=== PATIENT | female | born 1945 | race Caucasian/White ===

== ENCOUNTER → 2022-02-23 13:28 | Outpatient (CLI) | payer MEDICARE, OTHER, SELFPAY ==
[2022-02-23 15:51] LABS: Progesterone, Total 6.87 ng/mL
[2022-02-23 16:07] LABS: Estradiol, Total 71.6 pg/mL
== END ==
PROVIDERS: PCP Family Medicine; Referring Provider Nurse Practitioner Family; Visit Provider Nurse Practitioner Family
DX: N95.1 Menopausal and female climacteric states (principal); Z79.890 Hormone replacement therapy
CPT/HCPCS: 36415; 82670; 84144; 84403

== ENCOUNTER → 2022-10-25 14:45 | Outpatient (CLI) | payer MEDICARE, OTHER, SELFPAY ==
--- NOTE | 2022-10-25 14:48 | DI.US.S_ITS ---
PROCEDURE: US PELVIC COMPLETE INDICATIONS: VAGINAL BLEEDING TECHNIQUE: Real-time scanning was performed of the pelvic organs, with image documentation. Additional endovaginal scanning was necessary due to incomplete visualization of the adnexal and endometrial structures by transabdominal scanning. COMPARISON: None. FINDINGS: Uterus: Uterus is anteverted and normal in size at 7.8 x 3.7 x 3.7 cm. The myometrium is homogeneous. The endometrium measures 1.5 mm combined thickness. The endometrium demonstrates an echogenic, cystic appearance. Ovaries: The right ovary measures 1.8 x 1.1 x 1.2 cm, with a calculated ovarian volume of 1.1 cc. The left ovary measures 2.1 x 1.0 x 1.1 cm, with a calculated ovarian volume of 1.2 cc. The ovaries have a normal sonographic appearance. Less than 12 follicles can be seen in each ovary. No adnexal masses are seen. Other: No pathologic free abdominal or pelvic fluid. IMPRESSION: Markedly thickened, abnormal appearance of the endometrium suspicious for neoplasm. Endometrial biopsy recommended. We strive to produce accurate, complete, and clear reports of imaging services. To assist us in improving patient care, this report was composed using standard report templates and voice recognition software. Therefore, it may contain abnormal punctuation, insertions and/or omissions. Occasional wrong-word or sound-alike substitutions may occur. Though we review the report and make efforts to correct it, we do recommend that the report be read carefully in proper context to recognize any text inaccuracies. Dictated by: Maryjane Lieberman M.D. on 10/26/2022 at 9:49 Approved by: Maryjane Lieberman M.D. on 10/26/2022 at 9:57
== END ==
PROVIDERS: PCP Family Medicine; Referring Provider Family Medicine; Visit Provider Family Medicine
DX: N93.9 Abnormal uterine and vaginal bleeding, unspecified (principal); R93.89 Abnormal findings on diagnostic imaging of other specified body structures
CPT/HCPCS: 76830; 76856; 93976

== ENCOUNTER 2022-12-08 09:20 | Day surgery (SDC) | payer MEDICARE, OTHER, SELFPAY ==
[2022-12-04 14:24] VITALS: BMI 25.7
--- NOTE | 2022-12-08 | PATH_ITS ---
[facility] Accession Number: [id number] No. of containers..01 Tissue . 01 Material submitted: . endometrium - ENDOMETRIAL BIOPSY AND CURETTINGS . 01 Diagnosis: Endometrium, Curettage: Mixed endocervical and endometrial polyp fragments. Negative for significant atypia and neoplasia. [facility] 12/14/2022 1639 Local . 01 Electronically signed: . Sandra Akhtar MD, Pathologist NPI- [id number] . 01 Gross description: . ENDOMETRIAL BIOPSY AND CURETTINGS: Received in formalin are multiple fragments of mucoid and hemorrhagic material measuring 1.2 x 1.2 x 0.4 cm in aggregate. Submitted in toto in 1 cassette. /[facility] 12/12/2022 1939 Local . 01 Pathologist provided ICD-10: N84.0 . 01 CPT . 699108 Performed at: 01 [facility] [address] [place] [address] [address], [place], [place] [id number] MD Goran Cruz MD Phone: [phone]
[2022-12-08] MEDS: LACTATED RINGERS 1,000 ML 100 ML IV (09:44)
[2022-12-08 09:46] VITALS: BP 146/79; PULSE 82; RESP 16; TEMP 36.3; O2SAT 96; BMI 25.7
--- NOTE | 2022-12-08 10:29 | PM.PREOP ---
Pre-operative Note COVID-19 Criteria for continued procedure: Possibility delay results in more complex future surgery or treatment Interval Note History & Physical reviewed/Exam performed by Physician: Yes Changes to H&P: No
--- NOTE | 2022-12-08 11:00 | SUR.OPER ---
Lithotomy on padded OR bed, head on pillow, arms secured on padded arm boards at <90 degrees abduction. Legs secured in padded yellow fins stirrups.
--- NOTE | 2022-12-08 11:04 | SUR.OPER ---
Patients glasses brought with patient to OR, removed and placed in patient labelled black glass pouch and brought with patient to PACU.
--- NOTE | 2022-12-08 11:21 | PM.OP.1 ---
Operative Date/Time/Diagnoses Date of procedure: 12/08/22 Time of procedure: 11:21 Pre-op diagnosis: Postmenopausal bleeding with thickened endometrium on ultrasound Post-op diagnosis: same (Endometrial polyps) Procedure & Clinicians Procedure: Hysteroscopy D&C with resection of polyps Same procedure as scheduled: Yes Indications: Postmenopausal bleeding with thickened endometrium on ultrasound Surgeon: Ngozi Brandt Click Yes if Unassisted: Yes Anesthesia Type: General Operative Notes Findings: Normal exam under anesthesia. Endometrial polyp, areas of endometrium with cystic changes. Closure Type: not applicable Specimen(s): other (Endometrial curettage and biopsies of endometrium) Estimated Blood Loss (mL): 5 Blood products transfused: none Procedure in detail: The patient was brought to the operating room where she underwent general anesthesia. She was placed in low stirrups She was prepped and draped in usual sterile fashion with pulsatile stockings in place and functional, warming in place. No antibiotics were indicated. Her bladder was drained with in and out catheter. A single-tooth tenaculum was placed on the anterior lip of the cervix and the uterus dilated to #8 Hegar dilator. The hysteroscope was placed into the uterus with a sorbitol solution running and under constant suction. The resecting loop set at 80 W of cutting was used to resect the polyp and thickened endometrium down to the level of the myometrium. A endometrial curettage was performed. The polyps/endometrial biopsy and the endometrial curettage were sent to pathology. The patient went to recovery room in good condition counts of instruments and sponges were correct. Estimated blood loss less than 5 mL. The sorbitol solution I=O approximately 1000 mL. Complications: none Post-operative Condition: stable Disposition: same day surgery Plan for aftercare: Home when awake and stable. Further follow-up and treatment based on biopsy results.
[2022-12-08 11:26] VITALS: BP 120/66; PULSE 81; RESP 15; TEMP 36.9; O2SAT 97
[2022-12-08 11:31] VITALS: BP 124/66; PULSE 84; RESP 14; O2SAT 98
[2022-12-08 11:36] VITALS: BP 152/76; PULSE 79; RESP 13; O2SAT 99
[2022-12-08 11:46] VITALS: BP 150/71; PULSE 80; RESP 12; TEMP 36.6; O2SAT 98
== END 2022-12-08 12:01 | disposition home or self-care (01) ==
PROVIDERS: PCP Family Medicine; Referring Provider Specialist; Visit Provider Specialist
PROC: 0UDB8ZZ Extraction of Endometrium, Via Natural or Artificial Opening Endoscopic (ICD-10-PCS; CPT 58558; principal; 2022-12-08 10:45)
DX: N95.0 Postmenopausal bleeding (principal); N84.0 Polyp of corpus uteri
CPT/HCPCS: 58558; J1885; J2405; J2704; J3010

== ENCOUNTER → 2023-02-27 09:59 | Outpatient (CLI) | payer MEDICARE, OTHER, SELFPAY ==
[2023-02-27 12:15] LABS: Add Manual Diff / Slide Review NO; Basophils Absolute Auto 100 /uL (0-100); Basophils Percent Auto 1.1 % (0-2); Eosinophils Absolute Auto 200 /uL (0-450); Eosinophils Percent Auto 3.2 % (2-4); Hematocrit 40.2 % (36-46); Hemoglobin 13.7 g/dL (12.0-16.0); Lymphocytes Absolute Auto 2500 /uL (1100-4500); Lymphocytes Percent Auto 44.2 % (25-40); Mean Corpuscular Hemoglobin 29.1 PG (26-34); Mean Corpuscular Volume 85.5 fL (80-100); Monocytes Absolute Auto 300 /uL (0-900); Monocytes Percent Auto 5.3 % (3-14); Neutrophils Absolute Auto 2600 /uL (1500-7000); Neutrophils Percent Auto 46.2 % (50-75); Platelet Count 223 X10^3/uL (150-400); Red Blood Cell Count 4.71 X10^6/uL (4.0-5.2); Red Cell Distribution Width 13.9 % (11.6-14.8); White Blood Cell Count 5.7 X10^3/uL (4.5-11.0)
[2023-02-27 12:41] LABS: Progesterone, Total 4.52 ng/mL
[2023-02-27 12:56] LABS: Testosterone 33.8 ng/dL (5.71-77.0)
[2023-02-27 12:57] LABS: Estradiol, Total 53.9 pg/mL
[2023-03-14 10:50] LABS: Dehydroepiandrosterone (DHEA) 73
== END ==
PROVIDERS: PCP Family Medicine; Referring Provider Family Medicine; Visit Provider Family Medicine
DX: N95.1 Menopausal and female climacteric states (principal); R53.83 Other fatigue; Z79.890 Hormone replacement therapy
CPT/HCPCS: 36415; 82627; 82670; 84144; 84403; 85025

== ENCOUNTER → 2023-12-24 17:42 | Outpatient (CLI) | payer MEDICARE, OTHER, SELFPAY ==
--- NOTE | 2023-12-24 17:43 | DI.MG.S_ITS ---
BILATERAL DIGITAL SCREENING MAMMOGRAM 3D/2D WITH CAD: 12/24/2023 CLINICAL: Routine screening. Family history of breast cancer. Comparison is made to exams dated: 03/08/2021 mammogram, 06/28/2018 mammogram, and 02/12/2017 mammogram - out side. There are scattered areas of fibroglandular density (category b / 25%-50% glandular tissue). Current study was also evaluated with a Computer Aided Detection (CAD) system. No significant masses, calcifications, or other findings are seen in either breast. There has been no significant interval change. IMPRESSION: NEGATIVE There is no mammographic evidence of malignancy. A 1 year screening mammogram is recommended. Based on the Tyrer Cuzick model (a risk assessment model) the patient's lifetime risk is 4.6% and her 10 year risk is 0.0%. According to the ACR, ACS, and NCCN guidelines, an annual breast MRI exam along with mammogram is recommended if the patient's lifetime risk is 20% or greater. This exam was interpreted at Station ID: [id number]. NOTE: For mammograms, a report in lay terms will be sent to the patient. Approximately 15% of breast malignancies will not be visualized mammographically. In the management of a palpable breast mass, a negative mammogram must not discourage biopsy of a clinically suspicious lesion. Electronically Signed By: Yoel [email or web address]/[email or web address]:12/25/2023 11:15:00 letter sent: Normal Exam ACR BI-RADS Category 1: Negative
== END ==
LOC: MAMMO 17:43
PROVIDERS: PCP Family Medicine; Referring Provider Family Medicine; Visit Provider Family Medicine
DX: Z12.31 Encounter for screening mammogram for malignant neoplasm of breast (principal); Z80.3 Family history of malignant neoplasm of breast
CPT/HCPCS: 77063; 77067

== ENCOUNTER → 2024-10-17 16:32 | Outpatient (CLI) | payer MEDICARE, OTHER, SELFPAY ==
[2024-10-17 17:48] LABS: Free T3, Triiodothyronine Free 3.61 pg/mL (2.77-5.27); Free T4, Direct Thyroxine 3.41 ng/dL (0.78-2.19)
[2024-10-17 18:02] LABS: Thyroid Stimulating Hormone 1.56 uIU/mL (0.47-4.68)
== END ==
LOC: LAB 16:33
PROVIDERS: PCP Family Medicine; Referring Provider Family Medicine; Visit Provider Family Medicine
DX: E05.90 Thyrotoxicosis, unspecified without thyrotoxic crisis or storm (principal)
CPT/HCPCS: 36415; 83520; 84439; 84443; 84445; 84481

== ENCOUNTER → 2024-10-23 06:52 | Outpatient (CLI) | payer MEDICARE, OTHER, SELFPAY ==
--- NOTE | 2024-10-23 06:53 | DI.US.S_ITS ---
PROCEDURE: US THYROID INDICATIONS: HYPERTHYROIDISM TECHNIQUE: Real-time scanning was performed of the thyroid gland, with image documentation. COMPARISON: None. FINDINGS: Thyroid: Right lobe measures 4.9 x 1.9 x 1.7 cm. Left lobe measures 5.0 x 1.9 x 1.2 cm. Isthmus is 0.4 cm thick. Echotexture is heterogeneous. Nodule number: 1 Location: Left thyroid lobe middle 1/3 Size: 1.1 x 0.8 x 0.5 cm. Composition: Predominantly cystic, mixed Echogenicity: Hypoechoic Shape: wider than tall. Margins: Smooth Echogenic foci: Punctate Total points: 6 ACR TI-RADS category: 4 Nodule number: 2 Location: Right thyroid lobe middle 1/3 Size: 1.1 x 1.0 x 0.6 cm. Composition: Predominantly cystic, mixed Echogenicity: Anechoic Shape: wider than tall. Margins: Smooth Echogenic foci: Punctate Total points: 4 ACR TI-RADS category: 4 Nodule number: 3 Location: Right thyroid lobe middle-inferior Size: 1.0 x 0.9 x 0.6 cm. Composition: Solid Echogenicity: Isoechoic Shape: wider than tall. Margins: Smooth Echogenic foci: None Total points: 3 ACR TI-RADS category: 3 IMPRESSION: Bilateral thyroid nodules as discussed above do not meet criteria for fine needle aspiration. Follow-up suggested ACR TI-RADS definitions and recommendations: TI-RADS 1 (benign): 0 points. FNA not needed. TI-RADS 2 (not suspicious): 2 points. FNA not needed. TI-RADS 3: 3 points. * FNA if 2.5 cm or larger, follow up if 1.5 cm or larger (at 1, 3, and 5 years). TI-RADS 4: 4-6 points. * FNA if 1.5 cm or larger, follow up if 1 cm or larger (at 1, 2, 3, and 5 years). TI-RADS 5: 7 points or more. * FNA if 1 cm or larger, follow up if 0.5 cm or larger (every year for 5 years). Dictated by: David Rice M.D. on 10/23/2024 at 11:32 Approved by: David Rice M.D. on 10/23/2024 at 11:45
== END ==
LOC: US 06:52
PROVIDERS: PCP Family Medicine; Referring Provider Family Medicine; Visit Provider Family Medicine
DX: E05.90 Thyrotoxicosis, unspecified without thyrotoxic crisis or storm (principal); R25.1 Tremor, unspecified; E04.2 Nontoxic multinodular goiter
CPT/HCPCS: 76536